=== PATIENT | male | born 1960 | race Caucasian/White ===

== ENCOUNTER 2020-02-19 11:57 | Emergency (ER) | payer MEDICARE, SELFPAY ==
--- NOTE | ~2020-02-19 | CT_ITS ---
EXAMINATION: CT brain wo con, CT facial bones wo con DATE: 02/19/2020 12:39 INDICATION: Headache and nausea after head and facial injury. TECHNIQUE: 1. Computed tomography (CT) of the head was performed without intravenous contrast. Sagittal and anais nal reconstructions were performed. The mA was adjusted according to patient size. Iterative reconstr uction technique was employed. The dose-length product was 605.33 mGy-cm. 2. CT of the maxillofacial bones was performed without intravenous contrast. Sagittal and coronal rec onstructions were performed. Automated exposure control and iterative reconstruction technique were e mployed. The dose-length product was 422.38 mGy-cm. COMPARISON: None FINDINGS: Head: No calvarial fracture. No acute intracranial hemorrhage, acute infarction or abnormal extra axial flu id collection. Ventricles are normal and symmetric. No mass/mass effect. Mastoid air cells and middle ear cavities are clear. Maxillofacial bones: Small minimally displaced fracture of the nasal process of the right maxilla. There is some asymmetry to the nasal bones which. There is a nondisplaced oblique fracture extending from cephalad at the le ft nasal bone inferiorly and towards the right involving the cephalad portion of the right nasal bone and extending across the anterior aspect of the nasal septum. Additional nondisplaced sagittal orien daisy secondary fracture line at the left nasal bone. No other maxillofacial fractures identified. Specifically the etienne of the orbits and paranasal sinus es, the mandible, zygomatic arches and pterygoid plates are intact. Normal alignment at the bilateral temporomandibular joints. Orbits are normal. Mild mucosal thickening the right frontoethmoidal reces s. Paranasal sinuses are otherwise clear. Patient is edentulous. Anterior and posterior spinal fusion at C3-C6 with anterior plate and screw fixation at C5-C6. IMPRESSION: 1. Nondisplaced fractures of the bilateral nasal bones and minimally displaced fracture of the nasal process of the right maxilla. 2. No acute intracranial process. Reviewed, dictated and finalized at location B. IMPRESSION: 1. Nondisplaced fractures of the bilateral nasal bones and minimally displaced fracture of the nasal process of the right maxilla. 2. No acute intracranial process.
[2020-02-19 11:57] VITALS: BP 134/94; PULSE 99; RESP 16; TEMP 36.8; O2SAT 97
--- NOTE | 2020-02-19 12:06 | ED.WOUNDLAC ---
HPI - Wound/Laceration General Chief Complaint: Wound/Laceration Stated Complaint: Open cut on face Time Seen by Provider: 02/19/20 12:06 Source: patient Mode of arrival: ambulatory Limitations: no limitations History of Present Illness HPI narrative: 59-year-old man comes into the emergency department today complaining of nasal pain and a laceration that occurred approximately an hour prior to arrival. Patient states that he had a tool jump back and struck him on the nose. He states he has had nausea and headache since the injury. He denies loss of consciousness. Location: face Place: work Patient tetanus UTD: Yes Context: accidental Associated symptoms: pain and nausea/vomiting Related Data Allergies Allergy/AdvReac Type Severity Reaction Status Date / Time Penicillins Allergy Nausea and Verified 02/19/20 12:16 Vomiting Review of Systems Constitutional: Constitutional: Denies chills and Denies fever(s) Eyes: Eyes: Denies change in vision and Denies photophobia ENT: Denies dysphagia, Reports epistaxis, Denies nasal congestion and Denies sore throat Respiratory: Respiratory: Denies cough and Denies dyspnea Gastrointestinal: Gastrointestinal: Denies abdominal pain, Reports nausea and Denies vomiting Musculoskeletal: Musculoskeletal: Denies arthralgias and Denies joint swelling Integumentary/Breasts: Skin/Breast: Reports as per HPI, Denies pruritus, Denies erythema and Denies rash Neurologic: Reports as per HPI, Denies confusion, Denies vertigo, Denies dizziness, Denies syncope, Reports headache(s), Denies focal weakness, Denies numbness and Denies weakness Hematologic/Lymphatic: Hematologic/Lymphatic: Denies easy bleeding and Denies easy bruising Allergic/Immunologic: Allergic/Immunologic: Denies lip swelling and Denies tongue swelling [facility] Surgical History Surgical History (Updated 02/19/20 @ 12:25 by Pedrito Barrett MD) H/O cervical spine surgery x8 Social History Social History (Updated 02/19/20 @ 12:25 by Pedrito Barrett MD) Smoking status: Current every day smoker Substance use type: does not use Living arrangements: with family Exam Const: General: healthy appearing, no acute distress and alert Orientation/consciousness: patient oriented x3 Limitations: no limitations HENMT: Head: laceration ( 2 cm vertical laceration on the nasal bridge, FT on the middle third) Ears: TM's normal bilaterally and EAC's normal Mouth: Yes moist mucous membranes Throat: posterior oropharynx normal Other: Tenderness over the nasal bridge and the nasal cartilage minimal swelling. Eyes: Conjunctivae: conjunctivae normal Pupils: Equal, round and reactive pupils present EOM: EOMs intact bilaterally Resp: Effort & Inspection: normal respiratory effort and not labored Auscultation: clear to auscultation bilaterally, no rales, no rhonchi and no wheezes Cardio: Rate: regular rate Rhythm: regular rhythm Heart sounds: no murmurs Skin: General skin exam: normal color, no jaundice and no pallor Rashes: no rashes Neuro: General: patient oriented x3, moves all extremities, no focal motor deficits and CN's II-XI intact bilaterally Speech: normal speech Gait exam (Neuro): Normal gait present Extrem: General: normal to inspection and no clubbing, cyanosis or edema Psych: Appearance: grossly normal and well kempt Mental Status: mental status grossly normal Affect: normal affect Attitude: cooperative Thought content: Yes Normal thought content present Discharge Plan Discharge Clinical Impression: Laceration, Fracture of nasal bone, Concussion Patient Disposition: Home, Self-Care Condition: Stable Instructions: Nasal Fracture (ED), Concussion (ED), Steristrips (ED) Additional Instructions: Keep the wound clean and dry. Do not blow your nose. Follow-up with your doctor next week. Avoid operating heavy and dangerous machinery. Ground level work only. Be very cautious w
[2020-02-19 13:47] VITALS: BP 130/90; RESP 14; O2SAT 99
== END 2020-02-19 13:47 | disposition home or self-care (01) ==
PROVIDERS: Emergency Provider Emergency Medicine; PCP Nurse Practitioner Family
DX: S01.81XA Laceration without foreign body of other part of head, initial encounter (principal); S02.2XXA Fracture of nasal bones, initial encounter for closed fracture; S06.0X9A Concussion with loss of consciousness of unspecified duration, initial encounter; W22.8XXA Striking against or struck by other objects, initial encounter
CPT/HCPCS: 70450; 70486; 99283; 99284

== ENCOUNTER 2022-10-31 13:51 | Observation (INO) | payer MEDICARE, SELFPAY ==
--- NOTE | ~2022-10-31 | XR_ITS ---
EXAMINATION: XR retrograde pyelo w/stent LT DATE: 11/01/2022 14:58 INDICATION: Right ureteral stent placement TECHNIQUE: 62 fluoroscopic images of the abdomen and pelvis were obtained during procedure performed by Dr. Arnett. Radiologist was not present for the imaging or procedure. The amount of fluoroscopy ti me used during this procedure was 0.5 minutes. COMPARISON: CT dated 10/31/2022 FINDINGS: Retrograde contrast injection in the left ureter demonstrates a large partially obstructing stone at the junction of the proximal to mid left ureter which corresponds to a 9 mm stone seen on the prior C T. There is mild proximal hydroureteronephrosis. Final images demonstrate placement of a left interna l ureteral stent with loops formed in upper pole calyx of the left kidney and in the bladder. The sto ne is no longer visualized and has either been extracted or reflux back into the left renal collectin g system. IMPRESSION: 1. 9 mm partially obstructing stone at the proximal to mid left ureter with more proximal left hydrou reteronephrosis. Stone is identified on the final images and has likely been extracted or reflux back into the left renal collecting system. Correlate with procedure note for further detail. 2. Left internal ureteral stent placement in expected position. Reviewed, dictated and finalized at location A. IMPRESSION: 1. 9 mm partially obstructing stone at the proximal to mid left ureter with mor e proximal left hydroureteronephrosis. Stone is identified on the final images and has likely been extracted or reflux back into the left renal collecting sys tem. Correlate with procedure note for further detail. 2. Left internal ureteral stent placement in expected position.
[2022-10-31 13:54] VITALS: BP 150/88; PULSE 80; RESP 16; TEMP 36.8; O2SAT 100
[2022-10-31 14:22] LABS: Basophils Absolute Auto 0.1 K/mm3 (0.0-0.1); Basophils Percent Auto 0.8 % (0.2-1.2); Eosinophils Absolute Auto 0.3 K/mm3 (0-0.3); Eosinophils Percent Auto 4.5 % (0-4.4); Hematocrit 48.9 % (42.0-52.0); Hemoglobin 16.6 g/dL (14.0-18.0); Immature Granulocyte Absolute 0.03 K/mm3 (0.00-0.031); Immature Granulocyte Percent A 0.4 % (0-0.5); Lymphocytes Percent Auto 25.8 % (18.3-44.2); Mean Corpuscular HGB Conc 33.9 g/dl (32-36); Mean Corpuscular Hemoglobin 32.3 pg (26-34); Mean Corpuscular Volume 95.1 fl (80-100); Mean Platelet Volume 10.3 fl (7.4-10.4); Monocytes Absolute Auto 0.6 K/mm3 (0.1-0.6); Monocytes Percent Auto 7.6 % (2.6-8.5); Neutrophils Absolute Auto 4.5 K/mm3 (1.3-6.7); Neutrophils Percent Auto 60.9 % (45.5-73.1); Platelet Count Result 370 k/mm3 (150-375); Red Blood Count 5.14 M/mm3 (4.6-6.20); Red Cell Distribution Width 13.1 % (11.5-14.5); White Blood Count 7.4 K/mm3 (4.5-10.0)
[2022-10-31 14:29] LABS: Appearance Urine Clear (Clear); Bacteria Urine None Seen /hpf; Bilirubin Urine Negative (Negative); Blood Urine Negative (Negative); Color Urine Yellow (Yellow); Glucose Urine UA Negative (Negative); Ketones Urine Negative (Negative); Leukocyte Esterase Ur 2+ LEU/UL (Negative); Nitrate Urine Negative (Negative); Non Pathogenic Casts 0-2; Protein Urine Trace mg/dL (Negative); RBC Urine 0-2 /hpf (0-2); Squamous Epithelial Cell Urine None seen /hpf (Few)
[2022-10-31 14:32] LABS: Alanine Aminotransferase 24 U/L (6-50); Albumin Level 4.6 g/dL (3.5-5.1); Alkaline Phosphatase 54 U/L (38-126); Anion Gap 7 mmol/L (8-16); Aspartate Amino Transferase 26 U/L (17-59); Bilirubin,Total 0.7 mg/dL (0.2-1.3); Blood Urea Nitrogen 11 mg/dL (9-20); Calcium 9.1 mg/dL (8.4-10.2); Carbon Dioxide 26 mmol/L (22-30); Chloride 104 mmol/L (98-107); Estimated CRCL calculation 78 ml/min; Estimated Glomerular Filt Rate > 60; Glucose 108 mg/dL (65-110); Potassium 4.1 mmol/L (3.4-5.0); Sodium 137 mmol/L (137-145)
[2022-10-31 14:33] LABS: Add Urine Microscopic? YES
--- NOTE | 2022-10-31 15:23 | ED.ABDPAIN ---
HPI - Abdominal Pain General Chief Complaint: Abdominal Pain Stated Complaint: Possible kidney stones Time Seen by Provider: 10/31/22 14:14 Source: patient Mode of arrival: ambulatory Limitations: no limitations History of Present Illness HPI narrative: This is a 61-year-old male that presents to the emergency department for left flank pain. Present over the last couple of weeks. Reports the pain is constant. Intermittently more sharp. Associated with some dysuria and intermittent hematuria. Denies fever or vomiting. Related Data Allergies Allergy/AdvReac Type Severity Reaction Status Date / Time Penicillins Allergy Abdominal Verified 10/31/22 13:59 Pain Review of Systems Review of Systems: CONSTITUTIONAL: Denies fever GASTROINTESTINAL: Reports abdominal pain. Denies nausea, vomiting, or diarrhea. GENITOURINARY: Reports dysuria and hematuria. All systems reviewed & are unremarkable except as noted in HPI and below PMFSH Past Medical History Medical History (Updated 10/31/22 @ 17:51 by Leeanna Alvarado PA-C) History of kidney stones Social History Social History (Updated 10/31/22 @ 15:32 by Leeanna Alvarado PA-C) Substance use: never Exam Narrative: GENERAL: Well-appearing, well-nourished, and in no acute distress. HEAD: Normocephalic, atraumatic. EYES: EOMI. CHEST: Clear to auscultation. No respiratory distress. No wheezes rales or rhonchi HEART: Regular rate and rhythm. No murmur heard. Normal peripheral pulses. ABDOMEN: Soft, nontender, nondistended, normal active bowel sounds. No CVA tenderness EXTREMITIES: Normal range of motion. No edema. SKIN: Warm, dry, no rash. NEURO: No focal deficits. Alert and oriented x3. PSYCH: Normal mood and affect Course Course Emergency Course: Patient was updated on work-up and agrees with plan of care Consultations Consultation #1: Spoke with hospitalist about patient and work-up who accepts admission Date: 10/31/22 Consultation #2: Spoke with urology who will consult. Patient will be made n.p.o. at midnight for likely stent placement tomorrow Date: 10/31/22 Vital Signs Vital signs: Vital Signs Temperature 98.3 F 10/31/22 13:54 Pulse Rate 80 10/31/22 13:54 Respiratory Rate 16 10/31/22 13:54 Blood Pressure 150/88 10/31/22 13:54 Pulse Oximetry 100 10/31/22 13:54 Oxygen Delivery Room Air 10/31/22 13:54 Temperature 98.3 F 10/31/22 13:54 Pulse Rate 80 10/31/22 13:54 Respiratory Rate 16 10/31/22 13:54 Blood Pressure 150/88 10/31/22 13:54 Pulse Oximetry 100 10/31/22 13:54 Oxygen Delivery Room Air 10/31/22 13:54 MDM - Abdominal Pain MDM Narrative Medical decision making narrative: Patient presents to the emergency department for an outpatient CT scan showing a large kidney stone on the left. He is afebrile and nontoxic-appearing. CBC and metabolic panel without concerning findings. UA with 2+ leuk esterase and 11-20 white blood cells. This will be sent for culture. Patient started on Rocephin. His outpatient CT scan shows a 8 x 5 mm calculus in the proximal to mid ureter. Spoke with hospitalist about patient and work-up who accepts admission. Spoke with urology who will consult. Patient will be made n.p.o. at midnight for likely stent placement tomorrow Differential Diagnosis Differential diagnosis: Likely calculus of kidney and other (UTI) Lab Data Attestation: I reviewed the patient's lab results. 10/31/22 14:15 10/31/22 14:15 Labs: Lab Results 10/31/22 Range/Units 14:15 WBC 7.4 (4.5-10.0) K/mm3 RBC 5.14 (4.6-6.20) M/mm3 Hgb 16.6 (14.0-18.0) g/dL Hct 48.9 (42.0-52.0) % MCV 95.1 (80-100) fl MCH 32.3 (26-34) pg MCHC 33.9 (32-36) g/dl RDW 13.1 (11.5-14.5) % Plt Count 370 (150-375) k/mm3 MPV 10.3 (7.4-10.4) fl Immature Gran % (Auto) 0.4 (0-0.5) % Neut % (Auto) 60.9 (45.5-73.1) % Lymph % (Auto) 25.8 (18.3-44.2) % Mo
[2022-10-31] MEDS: ONDANSETRON INJ 4 MG/2 ML VIAL IV PUSH (18:07)
[2022-10-31 18:08] VITALS: BP 167/100; PULSE 69; RESP 18; O2SAT 99
[2022-10-31] MEDS: MORPHINE SULFATE (*CRX) 4 MG/ML INJ IV PUSH ×3 (18:08→23:58)
[2022-10-31] MEDS: ACETAMINOPHEN 500 MG TABLET 1000 MG PO (18:08)
--- NOTE | 2022-10-31 20:22 | PM.IMHP ---
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 according to patient pain has been present for the last 2-3 weeks but now has worsened, CT of abdomen and pelvis showed patient has a stone which is 10 mm in diameter. urinalysis showed numerous WBCs present. Patient has been admitted for further evaluation management and treatment. Review of Systems Review of Systems: Back pain, flank pain for 3 weeks, lodged kidney stone Constitutional: Constitutional: Denies chills, Denies fatigue, Denies fever(s), Denies malaise, Denies night sweats, Denies poor appetite and Denies weakness Eyes: Eyes: Denies change in vision ENT: Denies dysphagia, Denies vertigo, Denies dizziness and Denies odynophagia Cardiovascular: Cardiovascular: Denies chest pain, Denies radiating jaw, neck or arm pain and Denies palpitations Respiratory: Respiratory: Denies chest congestion, Reports cough, Denies excessive phlegm production, Denies pain on inspiration, Denies dyspnea and Denies wheezing Gastrointestinal: Gastrointestinal: Denies abdominal pain, Denies dyspepsia, Denies heartburn, Denies diarrhea, Denies nausea and Denies vomiting Genitourinary: Genitourinary: Reports flank pain and Reports testicular pain Musculoskeletal: Musculoskeletal: Reports back pain, Denies myalgias, Denies arthralgias and Denies joint swelling Integumentary/Breasts: Skin/Breast: Denies rash Neurologic: Denies focal weakness and Denies Sensory deficit (Neuro) Psychiatric: Psychiatric: Reports no additional psychiatric complaints and Reports as per HPI Endocrine: Endocrine: Denies flushing, Denies heat intolerance, Denies polyphagia, Denies polydipsia and Denies palpitations Hematologic/Lymphatic: Hematologic/Lymphatic: Reports no additional hematologic/lymphatic complaints and Reports as per HPI Allergic/Immunologic: Allergic/Immunologic: Reports no additional allergic/immunologic complaints and Reports as per HPI [facility] Past Medical History Medical History (Updated 11/01/22 @ 00:40 by Christopher Johnston MD) History of kidney stones Family History Family History (Updated 10/31/22 @ 21:23 by Kriss Vargas RN) Mother Lung cancer Cerebrovascular accident Father Lung cancer metastatic to brain Social History Social History (Updated 10/31/22 @ 15:32 by Leeanna Alvarado PA-C) Smoking packs per day: 0.5 Smoking cigarettes per day: 10.0 Years smoked: 30 Smoking pack-years: 15.00 Smoking status: Current every day smoker Tobacco type: cigarettes Second hand tobacco smoke exposure: Yes Alcohol intake: never Substance use: current Substance use type: marijuana Last use: 10/30 Lack of Transportation: No Lack of Food: Never True Current Housing: I Have Housing Concerned About Future Housing: No Difficulty Paying Gas/Electric Bills: No Difficulty Paying for Meds: No Currently Unemployed: No Education: High School Diploma/GED Difficulty w/ Childcare or Family Care: No Spiritual care concerns: No Meds Home Medications and Allergies Allergies Allergy/AdvReac Type Severity Reaction Status Date / Time Penicillins Allergy Abdominal Verified 10/31/22 13:59 Pain Vital Signs Vital Signs - 24 hr 10/31/22 13:54 10/31/22 18:08 Temperature 98.3 F Pulse Rate 80 69 Respiratory Rate 16 18 Blood Pressure 150/88 167/100 H Pulse Oximetry 100 99 Oxygen Delivery Room Air Exam Narrative: patient is laying in bed Const: General: comfortable, no acute distress, well developed, alert, awake and average body habitus Nutritional
[2022-10-31 20:30] VITALS: BP 144/87; PULSE 72; RESP 14; TEMP 36.3; O2SAT 96
--- NOTE | 2022-10-31 20:58 | ADMGEN ---
This patient, Pedrito Walker, was admitted to 3 [facility] Surg Room 312-01. Patient/family oriented to hospital policies and general routines including ID bracelet, bed and alarms, visiting hours, pain management, procedures, bathroom and other care routines, personal items, smoking policy, room service/diet, and visiting hours. Information on how to activate the Rapid Response Team has been discussed. Patient/Family are encouraged to report perceived risks to care and to ask questions if they do not understand what they are told or what they should do.
[2022-10-31 21:20] VITALS: BMI 22.6
[2022-11-01] VITALS (8 sets, daily range): BP systolic 100–134; BP diastolic 66–83; PULSE 56–86; RESP 12–18; TEMP 35.8–36.6; O2SAT 94–100; BMI 22.6
[2022-11-01] MEDS: HYDROmorphone HCL INJ (*CRX) 1 MG/ML SYR 0.5 MG IV PUSH ×2 (04:20→08:29)
--- NOTE | 2022-11-01 07:12 | WPDURCON ---
Assessment and Plan Assessment and plan (1) Left ureteral stone: Code(s): N20.1 - Calculus of ureter Status: Acute (2) Renal mass, right: Code(s): N28.89 - Other specified disorders of kidney and ureter Status: Acute Urology Consult Note HPI Date Seen: 11/01/22 Requesting Physician: Brian Spencer MD Primary Care Provider: Mauro Matson, PUBLIC AFFAIRS MANAGER Consult Narrative Narrative: Pedrito Walker is a 61 year old male Who has a known recurrent stone former managed by my partner Dr. Flower. he presented to the ER in [place] and was transferred here with a 2 week history of intermittent and progressive left flank and left lower quadrant pain. Imaging demonstrated an obstructing 10 mm left mid ureteral stone. He has symptoms suggestive of a possible urinary tract infection. Was admitted for antibiotics and plans for ureteral stent placement. The outside CT also suggest a indeterminate right renal mass. This was a noncontrast CT scan. Review of Systems Review of Systems: All systems reviewed & are unremarkable except as noted in HPI and below PMFSH Past Medical History Medical History (Updated 11/01/22 @ 07:13 by Graham Arnett MD) History of kidney stones Family History Family History (Updated 10/31/22 @ 21:23 by Kriss Vargas RN) Mother Lung cancer Cerebrovascular accident Father Lung cancer metastatic to brain Social History Social History (Updated 10/31/22 @ 15:32 by Leeanna Alvarado PA-C) Smoking packs per day: 0.5 Smoking cigarettes per day: 10.0 Years smoked: 30 Smoking pack-years: 15.00 Smoking status: Current every day smoker Tobacco type: cigarettes Second hand tobacco smoke exposure: Yes Alcohol intake: never Substance use: current Substance use type: marijuana Last use: 10/30 Lack of Transportation: No Lack of Food: Never True Current Housing: I Have Housing Concerned About Future Housing: No Difficulty Paying Gas/Electric Bills: No Difficulty Paying for Meds: No Currently Unemployed: No Education: High School Diploma/GED Difficulty w/ Childcare or Family Care: No Spiritual care concerns: No Meds Home Medications and Allergies Allergies Allergy/AdvReac Type Severity Reaction Status Date / Time Penicillins Allergy Abdominal Verified 10/31/22 13:59 Pain Vital Signs Vital Signs - 24 hr 10/31/22 13:54 10/31/22 18:08 10/31/22 22:32 Temperature 98.3 F Pulse Rate 80 69 Respiratory Rate 16 18 Blood Pressure 150/88 167/100 H Pulse Oximetry 100 99 Oxygen Delivery Room Air Room Air 10/31/22 20:30 11/01/22 06:00 Temperature 97.3 F L 96.5 F L Pulse Rate 72 72 Respiratory Rate 14 14 Blood Pressure 144/87 H 134/70 Pulse Oximetry 96 98 Oxygen Delivery Exam Const: General: no acute distress Resp: Effort & Inspection: normal respiratory effort GI: Inspection: non-distended GI Palp: No abdominal tenderness and No Guarding due to palpation present (GI) Auscultation: normal bowel sounds Results Labs 10/31/22 14:15 10/31/22 14:15 Labs: Short CBC 10/31/22 Range/Units 14:15 WBC 7.4 (4.5-10.0) K/mm3 Hgb 16.6 (14.0-18.0) g/dL Hct 48.9 (42.0-52.0) % Plt Count 370 (150-375) k/mm3 BMP 10/31/22 14:15 Sodium 137 Potassium 4.1 Chloride 104 Carbon Dioxide 26 BUN 11 Creatinine 0.90 Glucose 108 Calcium 9.1 Liver Function 10/31/22 Range/Units 14:15 Total Bilirubin 0.7 (0.2-1.3) mg/dL AST 26 (17-59) U/L ALT 24 (6-50) U/L Alkaline Phosphatase 54 (38-126) U/L Albumin 4.6 (3.5-5.1) g/dL Urine 10/31/22 Range/Units 14:15 Urine Color Yellow (Yellow) Urine Appearance Clear (Clear) Urine pH 6.0 (5.0-9.0) Ur Specific Anita 1.010 (1.001-1.035) Urine Protein Trace (Negative) mg/dL Urine Glucose (UA) Negative (Negative) mg/dL
--- NOTE | 2022-11-01 08:58 | PM.IMPN ---
Progress Note: A&P Assessment and Plan (1) Kidney stone on left side: Code(s): N20.0 - Calculus of kidney Status: Acute Assessment and Plan: - place in observation regular medical floor -pain control with Dilaudid - patient also has a migraine so I gave a one time dose of Toradol, Benadryl, and Compazine. -IV fluids with LR 100 ml per hour -urology consult and will take for cystoscopy with stent placement. Per their note, patient likely can d/c today and follow up next week for ESWL. (2) Acute UTI: Code(s): N39.0 - Urinary tract infection, site not specified Status: Acute Assessment and Plan: -WBC 7.4 -UA with +2 leukocyte esterase and WBC 11-20. Will see if urology wants short course of antibiotics at discharge -patient started on Rocephin -D/C plan with Cipro 500 mg PO BID for 5 days. He has already received 2 doses of IV rocephin so this will complete a total 7 day course. -cultures in progress (3) Renal mass, right: Code(s): N28.89 - Other specified disorders of kidney and ureter Status: Acute Assessment and Plan: urology consult (4) Tobacco dependence: Code(s): F17.200 - Nicotine dependence, unspecified, uncomplicated Status: Acute Assessment and Plan: nicotine patch as needed (5) Lung cancer: Code(s): C34.90 - Malignant neoplasm of unspecified part of unspecified bronchus or lung Status: Acute Assessment and Plan: patient follows up in the outpatient setting. Now with suspicious right renal mass -will recommend order CT renal protocol for outpatient to be completed prior to urology follow up. Subjective Date/time seen: 11/01/22 08:58 Interval history: HPI from chart review This is a 61-year-old male? 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 according to patient pain has been present for the last 2-3 weeks but now has worsened, CT of abdomen and pelvis showed patient has a stone which is 10 mm in diameter and indeterminate right renal mass with recommended MRI or CT renal protocol for further characterization. Urinalysis showed? numerous WBCs present. Patient has been admitted for management of pain, IV hydration, and urology consult for stone intervention. 11/01: Patient is seen today lying in bed in a dark room with his at bedside. He says that he is not very happy with this hospital. He feels like his pain control in the ER was not timely. He now still feels no pain and is hungry wanting to eat something. He complains of a severe headache that he attributes to not having eaten in a while, he describes it as is bilateral tension with photophobia. He also has severe pain to his left flank that is sharp and constant. He also complains of nausea but no vomiting. He has already seen neurology and will be going for a procedure this afternoon with their service for stone and intervention. From urology standpoint he is ready to discharge after the procedure if he tolerates a diet and his pain is controlled. He will need to follow-up with their service in 1 weeks time. I will also order for an outpatient CT renal protocol to be completed at the patient's convenience to investigate suspicious renal mass. Review of Systems Review of Systems: HPI from chart review Objective Data Vital Signs Vital Signs: Vital Signs - 24 hr 10/31/22 13:54 10/31/22 18:08 10/31/22 22:32 Temperature 98.3 F Pulse Rate 80 69 Respiratory Rate 16 18 Blood Pressure 150/88 167/100 H Pulse Oximetry 100 99 Oxygen Delivery Room Air Room Air 10/31/22 20:30 11/01/22 06:00 Temperature 97.3 F L 96.5 F L Pulse Rate 72 72 Respiratory Rate 14 14 Blood Pressure 144/87 H 134/7
[2022-11-01] MEDS: LACTATED RINGERS 1,000 ML 100 ML IV CONT (10:03)
[2022-11-01] MEDS: PROCHLORPERAZINE EDISYLATE 10 MG/2 ML VIAL IV PUSH (12:19)
[2022-11-01] MEDS: KETOROLAC 30 MG/ML VIAL (*BKC) IV PUSH (12:19)
[2022-11-01] MEDS: diphenhydrAMINE HCl INJ 50 MG/ML VIAL IV PUSH (12:20)
--- NOTE | 2022-11-01 12:49 | PM.DS ---
DS: Admitting Diagnosis Discharge Date November 01 Admitting Diagnosis Acute UTI DS: Discharge Diagnosis Discharge Diagnosis Plan Assessment and Plan (1) Kidney stone on left side: ?Code(s): N20.0 - Calculus of kidney ?Status:?Acute ?Assessment and Plan: - place in observation regular medical floor ?-pain control with Ultram and Dilaudid ?-IV fluids with LR 100 ml per hour ?-urology consult and will take for cystoscopy with stent placement. Per their note, patient likely can d/c today and follow up next week for ESWL. (2) Acute UTI: ?Code(s): N39.0 - Urinary tract infection, site not specified ?Status:?Acute ?Assessment and Plan: ?-WBC 7.4 -UA with +2 leukocyte esterase and WBC 11-20. Will see if urology wants short course of antibiotics at discharge -patient started on Rocephin ?-cultures in progress (3) Renal mass, right: ?Code(s): N28.89 - Other specified disorders of kidney and ureter ?Status:?Acute ?Assessment and Plan: ?urology consult (4) Tobacco dependence: ?Code(s): F17.200 - Nicotine dependence, unspecified, uncomplicated ?Status:?Acute ?Assessment and Plan: ?nicotine patch as needed (5) Lung cancer: ?Code(s): C34.90 - Malignant neoplasm of unspecified part of unspecified bronchus or lung ?Status:?Acute ?Assessment and Plan: ?patient follows up in the outpatient setting. Now with suspicious right renal mass -will order CT renal protocol for outpatient to be completed prior to urology follow up. DS: Summary Hospital Course Reason for hospitalization: Kidney stone, UTI Hospital Course: HPI from chart review This is a 61-year-old male? 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 according to patient pain has been present for the last 2-3 weeks but now has worsened, CT of abdomen and pelvis showed patient has a stone which is 10 mm in diameter and indeterminate right renal mass with recommended MRI or CT renal protocol for further characterization. Urinalysis showed? numerous WBCs present. Patient has been admitted for management of pain, IV hydration, and urology consult for stone intervention. 11/01: Patient is seen today lying in bed in a dark room with his at bedside. He says that he is not very happy with this hospital. He feels like his pain control in the ER was not timely. He now still feels no pain and is hungry wanting to eat something. He complains of a severe headache that he attributes to not having eaten in a while, he describes it as is bilateral tension with photophobia. He also has severe pain to his left flank that is sharp and constant. He also complains of nausea but no vomiting. He has already seen neurology and will be going for a procedure this afternoon with their service for stone and intervention. From urology standpoint he is ready to discharge after the procedure if he tolerates a diet and his pain is controlled. He will need to follow-up with their service in 1 weeks time. I will also order for an outpatient CT renal protocol to be completed at the patient's convenience to investigate suspicious renal mass. Status at Discharge Cognitive/behavioral status at discharge: Independent, A&O for Time Spent with Patient Time attestation: Total time spent providing and/or coordinating discharge services:40 Exam Narrative: General: well-nourished, 61 year old male appears to be in pain, lying on his left side in position. Neuro: awake, alert and oriented x4, speech clear, no focal neuro deficits noted HEENMT: normocephalic, atraumatic, EOMI, sclerae anicteric, moist oral mucosa Respiratory: Clear to auscultation bilaterally without crackles, rhonchi or wheez
[2022-11-01] MEDS: LACTATED RINGERS 1,000 ML 30 ML IV CONT (13:56)
--- NOTE | 2022-11-01 14:07 | WPDANESEPPF ---
Anes - Initial Pre Proc Eval Procedure: Operation Date: 11/01/22 14:15 Proposed Procedures p Cystoscopy,Left Stent Placement - Graham Arnett MD Date/Time: 11/01/22 14:07 Surgeon: Brian Spencer MD Pre Op Diagnosis: Kidney Stone/UTI Patient Data Age: 61 Gender: M Height: 1.8 m Weight: 73.8 kg Last Vital Signs Temp 35.8 C L 11/01/22 06:00 Pulse 72 11/01/22 06:00 Resp 14 11/01/22 06:00 BP 134/70 11/01/22 06:00 Pulse Ox 98 11/01/22 06:00 O2 Del Method Room Air 11/01/22 08:29 Allergies Allergy/AdvReac Type Severity Reaction Status Date / Time Penicillins Allergy Abdominal Verified 10/31/22 13:59 Pain Laboratory Tests 10/31/22 14:15 WBC 7.4 K/mm3 (4.5-10.0) RBC 5.14 M/mm3 (4.6-6.20) Hgb 16.6 g/dL (14.0-18.0) Hct 48.9 % (42.0-52.0) MCV 95.1 fl (80-100) MCH 32.3 pg (26-34) MCHC 33.9 g/dl (32-36) RDW 13.1 % (11.5-14.5) Plt Count 370 k/mm3 (150-375) MPV 10.3 fl (7.4-10.4) Immature Gran % (Auto) 0.4 % (0-0.5) Neut % (Auto) 60.9 % (45.5-73.1) Lymph % (Auto) 25.8 % (18.3-44.2) [place] % (Auto) 7.6 % (2.6-8.5) Eos % (Auto) 4.5 H % (0-4.4) Baso % (Auto) 0.8 % (0.2-1.2) Lymph # (Auto) 1.90 K/mm3 (0.9-3.2) [place] # (Auto) 0.6 K/mm3 (0.1-0.6) Eos # (Auto) 0.3 K/mm3 (0-0.3) Baso # (Auto) 0.1 K/mm3 (0.0-0.1) Abs Immat Gran (auto) 0.03 K/mm3 (0.00-0.031) Absolute Neuts (auto) 4.5 K/mm3 (1.3-6.7) Absolute Nucleated RBC 0.0 K/mm3 (0.0-0.012) Nucleated RBC % 0.0 % (0.0-0.2) Sodium 137 mmol/L (137-145) Potassium 4.1 mmol/L (3.4-5.0) Chloride 104 mmol/L (98-107) Carbon Dioxide 26 mmol/L (22-30) Anion Gap 7 L mmol/L (8-16) BUN 11 mg/dL (9-20) Creatinine 0.90 mg/dL (0.7-1.3) Estim Creat Clear Calc 78 ml/min Estimated GFR > 60 (59 - ) Glucose 108 mg/dL (65-110) Calcium 9.1 mg/dL (8.4-10.2) Total Bilirubin 0.7 mg/dL (0.2-1.3) AST 26 U/L (17-59) ALT 24 U/L (6-50) Alkaline Phosphatase 54 U/L (38-126) Total Protein 8.0 g/dL (6.3-8.2) Albumin 4.6 g/dL (3.5-5.1) Urine Color Yellow (Yellow) Urine Appearance Clear (Clear) Urine pH 6.0 (5.0-9.0) Ur Specific [place] 1.010 (1.001-1.035) Urine Protein Trace mg/dL (Negative) Urine Glucose (UA) Negative mg/dL (Negative) Urine Ketones Negative mg/dL (Negative) Ur Blood (Man) Negative (Negative) Urine Nitrate Negative (Negative) Urine Bilirubin Negative (Negative) Urine Urobilinogen 1.0 mg/dL (<2.0) Leukocyte Esterase Rfl 2+ H HETAL/UL (Negative) Urine RBC 0-2 /hpf (0-2) Urine WBC 11-20 H /hpf Ur Squamous Epith Cells None seen /hpf (Few) Urine Bacteria None seen /hpf Urine Casts 0-2 Patient hx anesthesia problems: none Family hx anesthesia problems: none Results Review: All pre-operative results and documents have been reviewed as part of the pre-operative evaluation. [facility] Past Medical History Medical History (Updated 11/01/22 @ 07:13 by Graham Arnett MD) History of kidney stones Surgical History Surgical History (Updated 11/01/22 @ 14:07 by Yaya Jernigan MD) History of thoracotomy Family History Family History Mother Lung cancer Cerebrovascular accident Father Lung cancer metastatic to brain Social History Social History Smoking packs per day: 0.5 Smoking cigarettes per day: 10.0 Years smoked: 30 Smoking pack-years: 15.00 Smoking status: Current every day smoker Tobacco type: cigarettes Second hand tobacco smoke exposure: Yes Alcohol intake: never Substance use: current Substance use type: marijuana Last use: 10/30 Lack of Transportation: No
--- NOTE | 2022-11-01 14:18 | WPDHPUPDATE1 ---
History and Physical Update Update Date/Time: 11/01/22 14:18 History and Physical has been reviewed, including an updated exam of the patient. There are NO changes in the patient's condition. Risks, benefits, and alternatives have been discussed and questions answered. Patient agrees to proceed with procedure.
[2022-11-01] MEDS: LIDOCAINE HCL 2% GEL UROJET 10 ML PKG MUCOUS MEM (14:48)
--- NOTE | 2022-11-01 15:08 | W.PM.PROC2 ---
Procedure Note - Detailed Date of Procedure 11/01/22 Pre-op Diagnosis Left ureteral stone Post-op Diagnosis Same Procedure Performed cystoscopy, left retrograde pyelogram and left ureteral stent placement Surgeon Graham Arnett MD Anesthesia MAC Description of Procedure patient brought the op suite was prepped draped in routine sterile fashion while in dorsal lithotomy position. 2% xylocaine jelly was introduced intraurethrally and systemic sedation is administered per the anesthesia department. Cystoscopy is undertaken with a 19 F rigid cystoscope. He has no urethral strictures very minimal prostatic hyperplasia. There was no intravesical foreign body or neoplasm. Bladder mucosa is normal without hyperemia. Has a normal orthotopic ureteral orifice bilaterally. And angiographic catheter was used to obtain left retrograde pyelogram. I can see has mid ureteral stone. We outlined the collecting system to ensure appropriate placement of a 4.8 F variable length stent over a 0.035 in glidewire. Scopes and wires removed and he was taken to the recovery room good condition. Urine Output 550 Drains Yes Packing No Pathology None sent Complications No immediate complications Condition Stable Disposition PACU
--- NOTE | 2022-11-01 18:23 | PC.NURSE ---
Pt had cysto done today. Pt on a regular diet post-op and is tolerating well. Pt has reported no pain since returning. Pt was given one dose of IV abx. Pt discharging home with . Pt IV removed. Pt monitored for any changes in status while here.
== END 2022-11-01 18:35 | disposition home or self-care (01) ==
LOC: ANHED 17:51 → ANH3MEDSUR 11-01 06:50
PROVIDERS: Emergency Medicine; Urology; Admitting Provider Internal Medicine; Emergency Provider Physician Assistant; PCP Registered Nurse; Visit Provider Student in an Organized Health Care Education/Training Program
PROC: (CPT 52352; principal; 2022-11-01 14:15)
DX: N20.1 Calculus of ureter (principal); N39.0 Urinary tract infection, site not specified; N28.89 Other specified disorders of kidney and ureter; C34.90 Malignant neoplasm of unspecified part of unspecified bronchus or lung; R51.9 Headache, unspecified; R11.0 Nausea; F17.210 Nicotine dependence, cigarettes, uncomplicated; F12.90 Cannabis use, unspecified, uncomplicated; Z87.442 Personal history of urinary calculi
CPT/HCPCS: 52332; 36415; 74420; 80053; 81001; 85025; 87086; 96361; 96365; 96375; 96376; 99285; A9270; C1758; C1769; C2617; G0378; J0696; J0780; J1170; J1200; J1885; J2270; J2405; J2704; J3010; J7120; Q9966

== ENCOUNTER 2022-11-07 13:48 | Outpatient (CLI) | payer MEDICARE, SELFPAY ==
--- NOTE | ~2022-11-07 | CT_ITS ---
CT of the Abdomen and Pelvis: Indication: Kidney stones, right kidney mass Technique: 2.5 mm axial scans were obtained through the abdomen and pelvis prior to and following in travenous administration of 100 cc of Omnipaque 350. Dose reduction technique was used on this scan b y utilizing automated exposure control and iterative reconstruction technique. The dose-length produc t (DLP) was 476.25 mGy-cm. COMPARISON: 03/02/2011 Findings: Scans through the lung bases are unremarkable. There is a 2.2 cm heterogeneously enhancing mass at the lower pole the right kidney (series 6 image 8 3), highly suspicious for renal cell carcinoma. There is an additional 6 mm right renal mass just sup erior (series 6 image 78, which is indeterminate given its small size. There is a large left upper po le renal cyst, similar to prior exam. Left ureteral stent is present, with a 7 x 5 mm stone in the pr oximal left ureter (series 6, image 77). Hounsfield units of the stone are in the range of 1500. Central intrahepatic biliary dilatation may be related to prior cholecystectomy. No hepatic parenchym al mass seen otherwise. The spleen, pancreas, and adrenal glands are within normal limits. Cholecyste ctomy clips are present. No evidence of aortic aneurysm. No lymphadenopathy. No bowel obstruction or bowel wall thickening. There is no evidence to suggest acute appendicitis. Images through the pelvis were performed. Suspected urinary bladder wall thickening diffusely with ur eteral stent in place. Prostate gland is mildly enlarged. Impression: 2.2 cm right lower pole renal mass is highly suspicious for renal cell carcinoma. There is an adjacen t 0.6 cm mass which is indeterminate given its small size. 7 x 5 mm proximal left ureteral stone with left ureteral stent in place. No left hydronephrosis. Stab le large left upper pole renal cyst. Diffuse urinary bladder wall thickening is suspicious for cystitis. Correlate with urinalysis. Reviewed, dictated and finalized at location M. Impression: 2.2 cm right lower pole renal mass is highly suspicious for renal cell carcinom a. There is an adjacent 0.6 cm mass which is indeterminate given its small size . 7 x 5 mm proximal left ureteral stone with left ureteral stent in place. No lef t hydronephrosis. Stable large left upper pole renal cyst. Diffuse urinary bladder wall thickening is suspicious for cystitis. Correlate w ith urinalysis.
== END 2022-11-07 13:49 | disposition home or self-care (01) ==
PROVIDERS: PCP Family Medicine; Visit Provider Urology
DX: D41.01 Neoplasm of uncertain behavior of right kidney (principal); N20.1 Calculus of ureter
CPT/HCPCS: 74178; Q9967

== ENCOUNTER 2022-11-09 00:31 | Day surgery (SDC) | payer MEDICARE, SELFPAY ==
[2022-11-02 13:54] VITALS: BMI 22.7
--- NOTE | 2022-11-02 14:08 | PC.NURSE ---
Report to the Outpatient Waiting Room, entrance under the green pavilion located off [facility], at time 0730 on date 11/09/22. Planned Procedure Time: 0930. Time changes happen often and if your time is changed the preop area will call you the afternoon before. - You and your visitor will be asked to self-screen and do not enter if you have any COVID symptoms. - A mask is optional within the hospital at this time. Patients may have clear liquids (water, carbonated beverages, clear teas, apple juice) until 3 hours prior to surgery with a maximum of 20 ounces. - No food from midnight until time of surgery Take the following medications with a SIP of water the morning of surgery: ANTIBIOTIC (IF STILL TAKING) DO NOT STOP ANY OF YOUR OTHER PRESCRIPTION MEDICATIONS PRIOR TO SURGERY ?EXCEPT THE FOLLOWING Medications to discontinue per physician: N/A Date to take last dose: N/A Please no make-up, nail tajik, hairspray, perfume, deodorant, or body powder the day of surgery. No jewelry (including any body piercings) or valuables the day of surgery, leave them at home. Please take a shower or bath the night before, or the morning of, surgery with an antibacterial soap. Wear comfortable, loose fitting clothing. - Jewelry must be removed prior to entering the operating room. Rings and piercings that are not removed may be cut off. - The hospital will not accept responsibility for valuables. - Please leave all valuables, including medications, at home the day of surgery. If you are going home after surgery, a licensed jukebox route driver must drive you home. - NO public transportation without another adult if you receive anesthesia. - We recommend that an adult stay with you for 24 hours following discharge. - We also recommend that you do not drive, make important decision, drink alcoholic beverages, or take any drugs that were not prescribed by your health care provider for at least 24 hours after your discharge time. Follow any additional instructions given to you from your surgeon. If you or anyone in your household have experienced Covid symptoms in the past week, please notify your surgeon or the nurse liaison at the phone number below for possible testing. Telephone instructions given to PT - MANJU NEIL and asked if any additional questions and then verbalized understanding. Patient advised to call surgeon office or pre surgery nurse liaison [phone] if any additional questions.
--- NOTE | 2022-11-06 07:01 | PM.HPGS ---
History of Present Illness History of Present Illness Consent: Risks, benefits, and alternatives have been discussed and questions answered. Patient agrees to proceed with procedure. Chief complaint: Lt Kidney Stone, Neoplasm Rt Kidney Ca Narrative: Pedrito Walker is a 61 year old male Who was admitted [facility] distal week ago with a painful 9 mm left proximal ureteral calculus. There was borderline signs of urinary tract infection which precluded definitive ESWL. The left ureteral stent was placed and he now presents for definitive left ESWL. He is aware the risk including, not limited to, adverse cardiopulmonary events, need for additional procedures, perinephric hematoma. Urine culture ultimately showed no growth. Additionally had an atypical, indeterminate mass in his right kidney and has been scheduled for contrast-enhanced axial imaging. Review of Systems Cardiovascular: Cardiovascular: Denies chest pain, Denies lightheadedness, Denies palpitations and Denies dyspnea Respiratory: Respiratory: Denies dyspnea Gastrointestinal: Gastrointestinal: Denies diarrhea, Denies nausea and Denies vomiting Genitourinary: Genitourinary: Denies hematuria and Denies dysuria Endocrine: Endocrine: Denies palpitations PMFSH Past Medical History Medical History (Updated 11/05/22 @ 11:12 by Minna Johnson) History of kidney stones Surgical History Surgical History (Updated 11/05/22 @ 11:12 by Minna Johnson) H/O cervical spine surgery x8 History of thoracotomy Family History Family History Mother Lung cancer Cerebrovascular accident Father Lung cancer metastatic to brain Social History Social History (System 11/05/22 @ 11:12 by Minna Johnson) Smoking packs per day: 0.5 Smoking cigarettes per day: 10.0 Years smoked: 30 Smoking pack-years: 15.00 Smoking status: Current every day smoker Tobacco type: cigarettes Second hand tobacco smoke exposure: Yes Alcohol intake: never Substance use: current Substance use type: marijuana Last use: 10/30 Lack of Transportation: No Lack of Food: Never True Current Housing: I Have Housing Concerned About Future Housing: No Difficulty Paying Gas/Electric Bills: No Difficulty Paying for Meds: No Currently Unemployed: No Education: High School Diploma/GED Difficulty w/ Childcare or Family Care: No Living arrangements: with family Spiritual care concerns: No Meds Home Medications and Allergies Home Medications Medication Instructions Recorded Confirmed Type acetaminophen 300 mg-codeine 30 mg 1 tablet PO Q6H PRN pain #15 tabs 02/19/20 Rx tablet cephalexin 500 mg capsule (Keflex) 500 mg PO Q8H #30 caps 02/19/20 Rx ciprofloxacin HCl 500 mg tablet 500 mg PO Q12H uti #10 tabs 11/01/22 11/02/22 Rx Allergies Allergy/AdvReac Type Severity Reaction Status Date / Time Penicillins Allergy Abdominal Verified 11/05/22 11:12 Pain Exam Const: General: no acute distress Resp: Effort & Inspection: normal respiratory effort GI: Inspection: non-distended GI Palp: No abdominal tenderness and No Guarding due to palpation present (GI) Auscultation: normal bowel sounds Assessment and Plan Assessment and plan (1) Left ureteral stone: Code(s): N20.1 - Calculus of ureter Status: Acute Assessment and Plan: Left ESWL
--- NOTE | 2022-11-08 14:21 | P.PNAN_ITS ---
Anes - Initial Pre Proc Eval Procedure: Operation Date: 11/09/22 09:30 Proposed Procedures p Left Extracorporeal Shock Wave Lithotripsy - Graham Arnett MD Date/Time: 11/08/22 14:21 Surgeon: Graham Arnett MD Pre Op Diagnosis: Lt Kidney Stone, Neoplasm Rt Kidney Ca Patient Data Age: 61 Gender: M Height: 1.8 m Weight: 73.95 kg Allergies Allergy/AdvReac Type Severity Reaction Status Date / Time Penicillins Allergy Abdominal Verified 11/05/22 11:12 Pain Home Medications Medication Instructions Recorded Confirmed Type ciprofloxacin HCl 500 mg tablet 500 mg PO BID 11/08/22 11/08/22 History Results Review: All pre-operative results and documents have been reviewed as part of the pre- operative evaluation. [facility] Past Medical History Medical History (Updated 11/05/22 @ 11:12 by Minna Johnson) History of kidney stones Surgical History Surgical History (Updated 11/05/22 @ 11:12 by Minna Johnson) H/O cervical spine surgery x8 History of thoracotomy Family History Family History Mother Lung cancer Cerebrovascular accident Father Lung cancer metastatic to brain Social History Social History (System 11/05/22 @ 11:12 by Minna Johnson) Smoking packs per day: 0.5 Smoking cigarettes per day: 10.0 Years smoked: 30 Smoking pack-years: 15.00 Smoking status: Current every day smoker Tobacco type: cigarettes Second hand tobacco smoke exposure: Yes Alcohol intake: never Substance use: current Substance use type: marijuana Last use: 10/30 Lack of Transportation: No Lack of Food: Never True Current Housing: I Have Housing Concerned About Future Housing: No Difficulty Paying Gas/Electric Bills: No Difficulty Paying for Meds: No Currently Unemployed: No Education: High School Diploma/GED Difficulty w/ Childcare or Family Care: No Living arrangements: with family Spiritual care concerns: No Anes - Eval Final PreProcedure Day of Procedure 11/08/22 14:21 Results Review: All pre-operative results and documents have been reviewed as part of the pre- operative evaluation. Informed Consent: The patient's anesthetic plan and its attendant risks and benefits were discussed with the patient/family/POA. Questions were solicited and answers provided to the satisfaction of the patient/family/POA.
--- NOTE | ~2022-11-09 | XR_ITS ---
Supine and upright views of the abdomen Clinical history: Renal stone Findings: Bowel gas pattern is nonspecific. No evidence for obstruction or free air. Left ureteral st ent is in place, with 1 cm stone adjacent to the proximal third of the stent. Cholecystectomy clips a re present. Osseous structures are intact. Impression: 1 cm proximal left ureteral stone with left ureteral stent. Reviewed, dictated and finalized at location . Impression: 1 cm proximal left ureteral stone with left ureteral stent.
--- NOTE | 2022-11-09 06:37 | WPDHPUPDATE1 ---
History and Physical Update Update Date/Time: 11/09/22 06:38 History and Physical has been reviewed, including an updated exam of the patient. There are NO changes in the patient's condition. Risks, benefits, and alternatives have been discussed and questions answered. Patient agrees to proceed with procedure.
[2022-11-09 07:00] VITALS: BP 137/84; PULSE 95; RESP 16; TEMP 36.7; O2SAT 99; BMI 22.4
--- NOTE | 2022-11-09 08:20 | SUR.PREOP ---
0820- Notified Dr. Dickens patient needing seen and complaining of severe pain to left back and penis. Patient requesting pain medication. Per Dr. Dickens he will be in to see patient.
[2022-11-09] MEDS: LACTATED RINGERS 1,000 ML 30 ML IV CONT (08:32)
[2022-11-09 08:33] LABS: Prothrombin Time 13.7 Seconds (11.1-14.7)
[2022-11-09 08:34] LABS: Partial Thromboplastin Time 32.3 SECONDS (22.3-36.8)
--- NOTE | 2022-11-09 09:09 | WPDANESEPPF ---
Anes - Initial Pre Proc Eval Procedure: Operation Date: 11/09/22 09:30 Proposed Procedures p Left Extracorporeal Shock Wave Lithotripsy - Graham Arnett MD Date/Time: 11/09/22 09:09 Surgeon: Graham Arnett MD Pre Op Diagnosis: Lt Kidney Stone, Neoplasm Rt Kidney Ca Patient Data Age: 61 Gender: M Height: 1.8 m Weight: 72.9 kg Last Vital Signs Temp 36.7 C 11/09/22 07:00 Pulse 95 11/09/22 07:00 Resp 16 11/09/22 07:00 BP 137/84 11/09/22 07:00 Pulse Ox 99 11/09/22 07:00 O2 Del Method Room Air 11/09/22 07:00 Allergies Allergy/AdvReac Type Severity Reaction Status Date / Time Penicillins Allergy Abdominal Verified 11/09/22 08:33 Pain Home Medications Medication Instructions Recorded Confirmed Type ciprofloxacin HCl 500 mg tablet 500 mg PO BID 11/08/22 11/08/22 History Laboratory Tests 11/09/22 08:16 PT 13.7 Seconds (11.1-14.7) INR 1.0 APTT 32.3 SECONDS (22.3-36.8) Patient hx anesthesia problems: none Family hx anesthesia problems: none Results Review: All pre-operative results and documents have been reviewed as part of the pre-operative evaluation. [facility] Past Medical History Medical History History of kidney stones Surgical History Surgical History H/O cervical spine surgery x8 History of thoracotomy Family History Family History Mother Lung cancer Cerebrovascular accident Father Lung cancer metastatic to brain Social History Social History Smoking packs per day: 0.5 Smoking cigarettes per day: 10.0 Years smoked: 30 Smoking pack-years: 15.00 Smoking status: Current every day smoker Tobacco type: cigarettes Second hand tobacco smoke exposure: Yes Alcohol intake: never Substance use: current Substance use type: marijuana Last use: 10/30 Lack of Transportation: No Lack of Food: Never True Current Housing: I Have Housing Concerned About Future Housing: No Difficulty Paying Gas/Electric Bills: No Difficulty Paying for Meds: No Currently Unemployed: No Education: High School Diploma/GED Difficulty w/ Childcare or Family Care: No Living arrangements: with family Spiritual care concerns: No Anes - Eval Final PreProcedure Day of Procedure 11/09/22 09:09 Patient weight: normal Heart: regular rate and rhythm Lungs: decreased breath sounds Airway: Mallampati scale class II Neurological: alert and oriented Last oral intake: >/= 8 hours ASA classification: III Emergent: no Anesthetic plan: proceed Anesthesia type and monitoring: general LMA and standard monitoring Results Review: All pre-operative results and documents have been reviewed as part of the pre-operative evaluation. Informed Consent: The patient's anesthetic plan and its attendant risks and benefits were discussed with the patient/family/POA. Questions were solicited and answers provided to the satisfaction of the patient/family/POA.
[2022-11-09] MEDS: fentaNYL CITRATE INJ (*CRX) 100 MCG/2 ML VIAL 50 MCG IV PUSH (09:13)
[2022-11-09] MEDS: ceFAZolin 2 GM/D5W 50 ML 2 GM/50 ML BAG IVPB (09:23)
--- NOTE | 2022-11-09 09:33 | W.PM.PROC2 ---
Procedure Note - Detailed Date of Procedure 11/09/22 Pre-op Diagnosis Lt Kidney Stone, Neoplasm Rt Kidney Ca Post-op Diagnosis Same Procedure Performed Left ESWL Surgeon Graham Arnett MD Anesthesia General Description of Procedure The patient was brought to the operative suite where he was placed in the supine position on the Dornier lithotripsy table. The focal point of the lithotripter was placed at a 8mm left mid-ureteral calculus. A total of 3000 shocks were delivered at a power setting of 5. There appeared to be good fragmentation of the stone. The patient tolerated the procedure well and was taken to the recovery room in good condition. Packing No Pathology None sent Complications No immediate complications Condition Stable Disposition PACU
[2022-11-09] MEDS: KETOROLAC 30 MG/ML VIAL (*BKC) IV PUSH (10:05)
[2022-11-09 10:10] VITALS: BP 130/76; PULSE 70; RESP 12; TEMP 36.1; O2SAT 100
[2022-11-09 10:25] VITALS: BP 140/96; PULSE 71; RESP 16; TEMP 36.3; O2SAT 100
[2022-11-09] MEDS: fentaNYL CITRATE INJ (*CRX) 100 MCG/2 ML VIAL 25 MCG IV PUSH ×4 (10:33→10:50)
[2022-11-09 10:40] VITALS: BP 138/92; PULSE 80; RESP 16; TEMP 36.2; O2SAT 96
[2022-11-09 10:55] VITALS: BP 147/97; PULSE 78; RESP 16
[2022-11-09] MEDS: oxyCODONE HCL (*CRX) 5 MG TAB IR PO (11:06)
[2022-11-09 11:25] VITALS: BP 141/91; PULSE 76; RESP 18
== END 2022-11-09 11:29 | disposition home or self-care (01) ==
PROVIDERS: PCP Family Medicine; Visit Provider Urology
PROC: (CPT 50590; principal; 2022-11-09 09:30)
DX: N20.1 Calculus of ureter (principal); N28.89 Other specified disorders of kidney and ureter; F17.210 Nicotine dependence, cigarettes, uncomplicated; F12.90 Cannabis use, unspecified, uncomplicated
CPT/HCPCS: 50590; 36415; 74018; 85610; 85730; A9270; J0690; J1100; J1885; J2250; J2405; J2704; J3010; J7120